=== PATIENT | female | born 1995 | race Caucasian/White ===

== ENCOUNTER 2017-09-01 14:24 | Emergency (ER) | payer OTHER ==
[~2017-09-01] VITALS: Ht 162.6 cm; Wt 60.0 kg
[2017-09-01 18:41] LABS: BASOPHILS % 0.5 % (0.0-2.0); EOSINOPHILS % 0.3 % (0.0-5.0); HEMATOCRIT. 41.9 % (36.0-48.0); HEMOGLOBIN. 14.2 g/dL (12.0-16.0); LYMPHOCYTES % 27.9 % (20.0-50.0); MEAN CORPUSCULAR HEMOGLOBIN 31.5 pg (28.0-32.0); MEAN CORPUSCULAR VOLUME 92.8 fL (81.0-99.0); MEAN PLATELET VOLUME 10.3 fl (7.4-10.4); MONOCYTES % 7.3 % (2.0-8.0); PLATELET 185 x1000/uL (130-400); RED BLOOD CELL COUNT 4.52 mill/uL (4.2-5.4); RED CELL DISTRIBUTION WIDTH 13.7 % (11.6-14.6)
[2017-09-01 18:46] LABS: CHLORIDE 105 mEq/L (98-107)
[2017-09-01 18:52] LABS: CARBON DIOXIDE 29 mEq/L (21-32); ETHANOL BLOOD < 10 mg/dL
[2017-09-01] MEDS ORDERED: POTASSIUM CHLORIDE 20MEQ TABLET SR PO ONE (20:45)
[2017-09-01 20:53] LABS: CLARITY URINE CLOUDY (CLEAR); COLOR URINE YELLOW (YELLOW); KETONES URINE 1+ (NEGATIVE); LEUKOCYTE ESTERASE URINE NEGATIVE (NEGATIVE); NITRITE URINE NEGATIVE (NEGATIVE); OCCULT BLOOD URINE NEGATIVE (NEGATIVE); PH URINE 8.5 (4.5-8.0); PROTEIN URINE NEGATIVE (NEGATIVE); SPECIFIC GRAVITY URINE 1.022 (1.005-1.030)
[2017-09-01 21:03] LABS: HCG SCREEN NEGATIVE
[2017-09-01 21:05] LABS: *AMPHETAMINES SCREEN URINE NEGATIVE (NEGATIVE); *BARBITURATES SCREEN URINE NEGATIVE (NEGATIVE); *BENZODIAZEPINES SCREEN URINE NEGATIVE (NEGATIVE); *COCAINE SCREEN URINE NEGATIVE (NEGATIVE); CANNABINOID URINE SCREEN NEGATIVE (NEGATIVE); METHADONE URINE SCREEN NEGATIVE (NEGATIVE); OPIATES URINE SCREEN NEGATIVE (NEGATIVE); PHENCYCLIDINE URINE SCREEN NEGATIVE (NEGATIVE)
[2017-09-02 03:58] VITALS: BP 105/57
== END 2017-09-02 05:01 | disposition home or self-care (01) ==
LOC: ER 14:24
DX: S09.90XA Unspecified injury of head, initial encounter (principal); F41.0 Panic disorder [episodic paroxysmal anxiety]; Z98.2 Presence of cerebrospinal fluid drainage device; W01.0XXA Fall on same level from slipping, tripping and stumbling without subsequent striking against object, initial encounter; Y93.89 Activity, other specified; Y99.8 Other external cause status; Y92.89 Other specified places as the place of occurrence of the external cause
CPT/HCPCS: 36415; 70450; 80053; 80305; 80307; 80329; 81001; 84703; 85025; 99285; G0482

== ENCOUNTER 2017-11-13 19:59 | Emergency (ER) | payer OTHER ==
[~2017-11-13] VITALS: Ht 149.9 cm; Wt 41.2 kg
[2017-11-13] MEDS ORDERED: LORAZEPAM 1MG TABLET PO ONE (23:15)
[2017-11-13 23:42] LABS: BASOPHILS % 0.3 % (0.0-2.0); EOSINOPHILS % 0.8 % (0.0-5.0); HEMATOCRIT. 41.7 % (36.0-48.0); HEMOGLOBIN. 14.1 g/dL (12.0-16.0); LYMPHOCYTES % 27.4 % (20.0-50.0); MEAN CORPUSCULAR HEMOGLOBIN 31.5 pg (28.0-32.0); MEAN CORPUSCULAR VOLUME 92.9 fL (81.0-99.0); MEAN PLATELET VOLUME 9.5 fl (7.4-10.4); MONOCYTES % 11.3 % (2.0-8.0); NEUTROPHILS % 60.2 % (40.0-76.0); PLATELET 201 x1000/uL (130-400); RED BLOOD CELL COUNT 4.49 mill/uL (4.2-5.4); RED CELL DISTRIBUTION WIDTH 13.5 % (11.6-14.6)
[2017-11-13 23:55] LABS: CHLORIDE 104 mEq/L (98-107)
[2017-11-13 23:58] LABS: HCG SCREEN NEGATIVE
[2017-11-14 00:03] LABS: ETHANOL BLOOD < 10 mg/dL
[2017-11-14 00:08] LABS: CLARITY URINE CLOUDY (CLEAR); COLOR URINE YELLOW (YELLOW); KETONES URINE NEGATIVE (NEGATIVE); LEUKOCYTE ESTERASE URINE NEGATIVE (NEGATIVE); NITRITE URINE NEGATIVE (NEGATIVE); OCCULT BLOOD URINE NEGATIVE (NEGATIVE); PROTEIN URINE NEGATIVE (NEGATIVE); SPECIFIC GRAVITY URINE 1.028 (1.005-1.030)
[2017-11-14 00:26] LABS: *AMPHETAMINES SCREEN URINE NEGATIVE (NEGATIVE); *BARBITURATES SCREEN URINE NEGATIVE (NEGATIVE); *BENZODIAZEPINES SCREEN URINE NEGATIVE (NEGATIVE); *COCAINE SCREEN URINE NEGATIVE (NEGATIVE); CANNABINOID URINE SCREEN NEGATIVE (NEGATIVE); PHENCYCLIDINE URINE SCREEN NEGATIVE (NEGATIVE)
[2017-11-14 00:27] LABS: METHADONE URINE SCREEN NEGATIVE (NEGATIVE); OPIATES URINE SCREEN NEGATIVE (NEGATIVE)
[2017-11-16] MEDS: FLUOXETINE HCL 20MG CAPSULE PO SCH ×2 (01:45→09:00)
[2017-11-16 14:11] VITALS: BP 117/85
== END 2017-11-16 14:58 | disposition home or self-care (01) ==
LOC: ER 19:59
DX: T14.91XA Suicide attempt, initial encounter (principal); F48.8 Other specified nonpsychotic mental disorders; F43.0 Acute stress reaction; G80.9 Cerebral palsy, unspecified; H54.7 Unspecified visual loss; X83.8XXA Intentional self-harm by other specified means, initial encounter; Y93.89 Activity, other specified; Y92.89 Other specified places as the place of occurrence of the external cause
CPT/HCPCS: 36415; 80053; 80305; 80307; 80329; 81003; 84703; 85025; 99285; G0482

== ENCOUNTER 2017-11-21 23:06 | Emergency (ER) | payer OTHER ==
[~2017-11-21] VITALS: Ht 152.4 cm; Wt 50.0 kg
[2017-11-22 00:46] LABS: CHLORIDE 105 mEq/L (98-107)
[2017-11-22 00:48] LABS: HEMATOCRIT 42.2 % (36.0-48.0); HEMOGLOBIN 14.5 g/dL (12.0-16.0); MEAN CORPUSCULAR VOLUME 92.9 fL (81.0-99.0); PLATELET 173 x1000/uL (130-400); RED BLOOD CELL COUNT 4.54 mill/uL (4.2-5.4); RED CELL DISTRIBUTION WIDTH 13.4 % (11.6-14.6)
[2017-11-22 02:49] VITALS: BP 126/65
[2017-11-22] MEDS ORDERED: POTASSIUM CHLORIDE 20MEQ TABLET SR PO SCH (03:49)
== END 2017-11-22 04:31 | disposition home or self-care (01) ==
LOC: ER 23:06
DX: R53.1 Weakness (principal); G80.9 Cerebral palsy, unspecified; R20.0 Anesthesia of skin
CPT/HCPCS: 36415; 70450; 80053; 81025; 82330; 83735; 85027; 99285; Z7610